=== PATIENT | female | born 1960 ===

== ENCOUNTER → 2024-04-25 15:13 | Outpatient (REF) | payer MEDICARE, BC, SELFPAY | LOC: PAVMRI 15:13 | PROVIDERS: ATTENDING PHYSICIAN Physician Assistant; FAMILY PHYSICIAN Internal Medicine | DX: M25.512 Pain in left shoulder (principal) | CPT/HCPCS: 73221 ==

== ENCOUNTER 2025-06-07 06:13 | Day surgery (SDC) | payer MEDICARE, BC, SELFPAY ==
[2025-06-07 07:30] VITALS: BP 132/75
[2025-06-07 07:35] VITALS: BMI 22.0
[2025-06-07 07:48] VITALS: BMI 22.0
[2025-06-07 09:30] VITALS: BP 104/56
[2025-06-07 09:45] VITALS: BP 108/68
[2025-06-07 10:00] VITALS: BP 101/79
[2025-06-07] MEDS: ERYTHROMYCIN 0.5% OPHTHALMIC OINTMENT 1 APPLIC OPHTH (10:05)
== END 2025-06-07 10:25 | disposition home or self-care (01) ==
LOC: GI 06:13
PROVIDERS: ATTENDING PHYSICIAN Internal Medicine Gastroenterology
DX: K86.89 Other specified diseases of pancreas (principal); F11.90 Opioid use, unspecified, uncomplicated
CPT/HCPCS: 43237; 43239; 88305